=== PATIENT | male | born 1985 | race Caucasian/White ===

== ENCOUNTER 2016-07-22 01:27 | Emergency (ER) | payer SELFPAY ==
[~2016-07-22] VITALS: Ht 170.2 cm; Wt 80.6 kg
[~2016-07-22 01:27] MED LIST: HYDR-3989 PO; LEVO75TA10 PO; METR500T PO; OMEP20CA10 PO; SULF1TAB42 PO
--- OUTSIDE RECORDS SUMMARY | 2016-07-22 01:31 | XMS REPORT | Continuity of Care Document ---
Author Author [facility] Organization [facility] Address Unknown Phone Unavailable Support Name Relationship Address Phone LOR VERMA APRN Caregiver [address] [place] [address] Unavailable LING LOREDO MD Caregiver [address] [place] [address] [place] [phone] Unavailable ARPITA KELLOGG SR Next Of Kin [address] [place] [phone] Insurance Providers Guarantor Mauri Kellogg Address [address] [place] [address] [place] [phone] Email DENIED/NO EMAIL Payer Self Pay Subscriber's Name Mauri Kellogg Relationship 18 Self Chief Complaint and Reason for Visit Chief Complaint General Reason for Visit [id number] Rectal pain Problems Active Problems Medical Problem Onset Date Status Perirectal abscess Unknown Acute Past Problems Medical Problem Onset Date Rectal pain Unknown Skin induration Unknown Medications Current Home Medications Medication Dose Units Route Directions Days Qty Instructions Start Date Hydrocodone/Acetaminophen (Hydrocodon-Acetaminophen 5-325) 5-325 Tablet 1-2 Tab Oral Every 6 Hours as needed for Pain 10 Tablet 02/12/16 Levothyroxine Sodium 75 Mcg Tablet 75 Mcg Oral Before Breakfast 02/12/16 Metronidazole (Flagyl) 500 Mg Tablet 500 Mg Oral Q8h @ 0100/0900/1700 7 Days 21 Tablet Take 1 tablet, by mouth, every 8 hours. 02/12/16 Omeprazole 20 Mg Capsule.dr 20 Mg Oral Before Meals Twice A Day 02/12/16 Sulfamethoxazole/Trimethoprim (Bactrim Ds Tablet) 1 Each Tablet 1 Tab Oral Twice A Day 7 Days 14 Tablet Take 1 tablet, by mouth, 2 times a day. Past Home Medications Medication Directions Ordered Status Albuterol 17 Gm Aerosol, 17 Gm Inhalation Daily 09/21/09 Discontinued Amoxicillin , 10/03/09 Discontinued Hydrocodone Bit/Acetaminophen (Vicodin 5/500 Tablet) 1 Tab Tablet, As Needed 09/21/09 Discontinued None , 09/05/08 Discontinued Ranitidine Hcl (Zantac) 150 Mg Capsule, 150 Mg Oral Daily 09/21/09 Discontinued Social History Social History Problem Response Recorded Date/Time Onset Date Status Hx Substance Use No 02/12/2016 4:00pm Not Applicable Not Applicable Hx Alcohol Use Y OCCASIONAL 02/12/2016 4:00pm Not Applicable Not Applicable Query Response Start Date Stop Date Smoking Status Current every day smoker Hospital Discharge Instructions No hospital discharge instructions. Plan of Care Discharge Date 02/12/16 4:53pm Disposition 01 DISCHARGED HOME, SELF-CARE Condition at Discharge Stable Instructions/Education Provided Cellulitis Prescriptions See Medication Section Referrals TIKA HERNADEZ MD Address: [address] [place] [address] [place] [phone] Note: Follow-up for reevaluation Care Plan and Goals Physician Care Plan Problem: Perirectal pain, induration of skin Goal: Follow up with primary care provider Instructions: Take medications and follow care plan as discussed/written Functional Status No functional status results. Allergies, Adverse Reactions, Alerts Allergen Type Severity Reaction Status Last Updated No Known Drug Allergies Allergy Unknown Active 02/12/16 [place] Allergy Unknown Active 02/12/16 Immunizations Query Response on File Recorded Date/Time Hx Influenza Vaccination No 04/28/12 6:18pm Hx Pneumococcal Vaccination No 04/28/12 6:18pm Hx Influenza Vaccination No 04/28/12 6:18pm Vital Signs Acute Vital Signs Vital Response Date/Time Temperature (Fahrenheit) 97.9 deg F (96.8 - 99.1) 02/12/2016 3:51pm Temperature (Calculated Celsius) 36.29697 degrees C (36.0 - 37.3) 02/12/2016 3:51pm Pulse Rate (adult) 107 bpm (60 - 100) 02/12/2016 4:53pm Respiratory Rate 16 breaths/min (10 - 20) 02/12/2016 4:53pm O2 Sat by Pulse Oximetry 95 % (90 - 100) 02/12/2016 4:53pm Blood Pressure 109/79 mm Hg 02/12/2016 4:53pm Height (Feet) 5 feet 02/12/2016 3:51pm Height (Inches) 8.00 inches 02/12/2016 3:51pm Weight (Kilograms) 83.100 kg 02/12/2016 3:51pm Body Mass Index (BMI) 27.0 02/12/2016 3:51pm Results No known relevant diagnostic tests, laboratory data and/or discharge summary. Procedures Procedure Status Date Provider(s) INCISION OF ANAL ABSCESS Completed 01/18/16 LING LOREDO MD Encounters Encounter Location Arrival/Admit Date Discharge/Depart Date Attending Provider Departed Emergency Room [facility] 02/12/16 3:47pm 02/12/16 4: 53pm LING LOREDO MD Departed Emergency Room [facility] 01/18/16 6:55am 01/18/16 7: 45am LING LOREDO MD Recent Diagnosis
[2016-07-22 01:46] VITALS: BP 138/77; PULSE 82; RESP 16; TEMP 97.9; O2SAT 98; Ht 170.2 cm; Wt 80.6 kg
[2016-07-22] MEDS ORDERED: ESOM20CA PO (01:59)
[2016-07-22] MEDS ORDERED: LORA10TA7 PO (01:59)
[2016-07-22] MEDS ORDERED: FLUT9.9S INH (01:59)
--- NOTE | 2016-07-22 01:59 | ERPDOC ---
Departure Disposition Decision Date: Jul 22, 2016 Disposition Decision Time: 02:14 Disposition: 01 DISCHARGED HOME, SELF-CARE Impression Impression Impression: Primary Impression: Right foot sprain Severity: Moderate Condition: Improved Seen By: Physician only Referrals: LOR VERMA APRN (Family) Patient Instructions: Foot Sprain (ED) Problems/Meds/Labs Reviewed?: Yes Medications reviewed and manag: Yes Additional Instructions: Postop shoe to be used for comfort. Keep foot elevated, ice. Ibuprofen for pain. See your primary care provider if pain continues. Follow up care ordered?: Yes Mental Status: Alert, Oriented HPI - Lower Extremity General Chief Complaint: Lower Extremity Injury Stated Complaint: ROLLED R ANKLE Time Seen by Provider: 01:55 HPI - Lower Extremity Initial Comments 31-year-old gentleman with right ankle/foot pain. Patient was playing basketball his nephew and twisted and fell to the floor, he continued again and finished then noticed that he has swelling on top of his foot. He suddenly had pain and could not bear weight on the foot. No other trauma or issues. Allergies: Coded Allergies: No Known Drug Allergies (Unverified Allergy, Unknown, 07/22/16) strawberry (Unverified Allergy, Unknown, 07/22/16) Past History Past Medical History Pt denies signifigant PMH Respiratory: asthma Surgical History Denies Surgeries Vaccines Hx Influenza Vaccination: No Hx Pneumococcal Vaccination: No Social History Substance Use Type: does not use Alcohol Intake: none Record Review Pertinent history updated: Yes Review of Systems Musculoskeletal General: see HPI All other Systems All Other Systems: Reviewed and Negative Physical Exam General General Nourishment: well nourished, well developed Distress Description Foot pain Vitals and Pain Weight: Kilograms: Height (feet): 5 Height (inches): 8.00 Triage Pain Scale: Normal Exams: Head: Normocephalic w/o trauma Chest/Resp: Clear all miller, with good airflow, and symmetry bilaterally CV: Regular rate and rhythm, without murmur or gallop, Pulses 2+ all extremities, capillary refill, <2 seconds all ext., no pedal edema noted Abdomen: Bowel sounds positive, soft, non-tender, non-distended, no hepatosplenomegaly, masses or bruits noted Neurologic: Patient is alert, and oriented, cranial nerves, motor/sensory/ cerebellar, exams w/o gross deficits, to observation Psychiatric: Patient exhibits, appropriate attention, emotion and affect Musculoskeletal (brief) Comments Swelling on dorsum of right foot, tender to touch over fourth and fifth metatarsal proximal. Differential Diagnoses Considering: Other (fracture, sprain, contusion) Progress Results/Orders Orders Procedure Category Date Status Time Foot Right 3 Views RAD 07/22/16 Logged 01:55 Progress Progress X-ray foot reviewed, no fracture noted. Is most likely a sprain. He'll be placed in a postop shoe for comfort and recommend he follow up with PCP. Ibuprofen for pain, recommended icing and keeping foot elevated. AGNES HESTER MD Jul 22, 2016 01:59
--- NOTE | 2016-07-22 02:00 | NUR ---
IMAGING PT LEAVES WITH IMAGING STAFF AT THIS TIME.
--- NOTE | 2016-07-22 02:14 | NUR ---
RETURN PT RETURNS TO ROOM AT THIS TIME.
--- NOTE | 2016-07-22 02:43 | NUR ---
DEPART PT IS DISCHARGED AT THIS TIME, INSTRUCTIONS ARE REVIEWED AND UNDERSTANDING IS VOICED. PT LEAVES AMBULATORY AND HOPS ON HIS L FOOT.
--- NOTE | 2016-07-22 08:31 | DI ---
Indication: ITS.REASON: trauma PROCEDURE: FOOT RIGHT 3 VIEWS: Encounter: Initial Comparison: None Findings: There is no acute fracture, dislocation or malalignment identified. Impression: No acute osseous abnormality. .
== END 2016-07-22 02:43 | disposition home or self-care (01) ==
LOC: ED 01:27
DX: S93.601A Unspecified sprain of right foot, initial encounter (principal); X50.1XXA Overexertion from prolonged static or awkward postures, initial encounter; Y93.67 Activity, basketball; Y92.838 Other recreation area as the place of occurrence of the external cause; Y99.8 Other external cause status

== ENCOUNTER 2016-08-29 17:33 | Emergency (ER) | payer SELFPAY ==
[~2016-08-29] VITALS: Ht 172.7 cm; Wt 90.0 kg
[~2016-08-29 17:33] MED LIST changes: +ESOM20CA PO; +FLUT9.9S INH; -HYDR-3989 PO; +LORA10TA7 PO; -METR500T PO; -OMEP20CA10 PO; -SULF1TAB42 PO
--- OUTSIDE RECORDS SUMMARY | 2016-08-29 17:37 | XMS REPORT | Continuity of Care Document ---
Author Author [facility] Organization [facility] Address Unknown Phone Unavailable Support Name Relationship Address Phone AGNES HESTER MD Caregiver [address] [place] [address] Unavailable LOR VERMA APRN Caregiver [address] [place] [address] Unavailable ARPITA WALKER SR Next Of Kin [address] [place], [place] [phone] Insurance Providers Guarantor Mauri Walker Address [address] [place] [address] Email DENIED/07/22/16 Payer Self Pay Subscriber's Name Mauri Walker Relationship 18 Self Advance Directives Directive Response Recorded Date/Time Advanced Directives Type None 07/22/16 1:46am Chief Complaint and Reason for Visit Chief Complaint Lower Extremity Injury Reason for Visit [id number] Problems Active Problems Medical Problem Onset Date Status Perirectal abscess Unknown Acute Rectal pain Unknown Acute Skin induration Unknown Acute Past Problems Medical Problem Onset Date Rectal pain Unknown Right foot sprain Unknown Skin induration Unknown Medications Current Home Medications Medication Dose Units Route Directions Days Qty Instructions Start Date Esomeprazole Mag Trihydrate (Nexium) 20 Mg Capsule 1 Tab Oral Twice A Day 07/22/16 Fluticasone Propionate (Flonase Allergy Relief 50 Mcg/Actuation Nasal) 9.9 Ml Hobbs.susp 1 Hobbs Inhalation Daily 07/22/16 Levothyroxine Sodium 75 Mcg Tablet 75 Mcg Oral Before Breakfast 02/12/16 Loratadine 10 Mg Tablet 10 Mg Oral Before Breakfast Take 1 tablet, by mouth, one time a day (before breakfast). 07/22/16 Past Home Medications Medication Directions Ordered Status Albuterol 17 Gm Aerosol, 17 Gm Inhalation Daily 09/21/09 Discontinued Amoxicillin , 10/03/09 Discontinued Hydrocodone Bit/Acetaminophen (Vicodin 5/500 Tablet) 1 Tab Tablet, As Needed 09/21/09 Discontinued None , 09/05/08 Discontinued Ranitidine Hcl (Zantac) 150 Mg Capsule, 150 Mg Oral Daily 09/21/09 Discontinued Social History Social History Problem Response Recorded Date/Time Onset Date Status Hx Substance Use Y MARIJUANA 07/22/2016 1:50am Not Applicable Not Applicable Hx Alcohol Use Y 1-2 X WEEK 07/22/2016 1:50am Not Applicable Not Applicable Query Response Start Date Stop Date Smoking Status Current every day smoker Hospital Discharge Instructions No hospital discharge instructions. Plan of Care Discharge Date 07/22/16 2:43am Disposition 01 DISCHARGED HOME, SELF-CARE Condition at Discharge Improved Instructions/Education Provided Foot Sprain (ED) Prescriptions See Medication Section Referrals LOR VERMA APRN Address: [address] [place] [phone] Additional Instructions/Education Postop shoe to be used for comfort. Keep foot elevated, ice. Ibuprofen for pain. See your primary care provider if pain continues. Functional Status No functional status results. Allergies, Adverse Reactions, Alerts Allergen Type Severity Reaction Status Last Updated No Known Drug Allergies Allergy Unknown Active 07/22/16 [place] Allergy Unknown Active 07/22/16 Immunizations Query Response on File Recorded Date/Time Hx Influenza Vaccination No 04/28/12 6:18pm Hx Pneumococcal Vaccination No 04/28/12 6:18pm Hx Influenza Vaccination No 04/28/12 6:18pm Tdap Vaccine Hx UNK 07/22/16 2:00am Vital Signs Acute Vital Signs Vital Response Date/Time Temperature (Fahrenheit) 97.9 deg F (96.8 - 99.1) 07/22/2016 1:46am Temperature (Calculated Celsius) 36.80352 degrees C (36.0 - 37.3) 07/22/2016 1:46am Pulse Rate (adult) 82 bpm (60 - 100) 07/22/2016 1:46am Respiratory Rate 16 breaths/min (10 - 20) 07/22/2016 1:46am O2 Sat by Pulse Oximetry 98 % (90 - 100) 07/22/2016 1:46am Blood Pressure 138/77 mm Hg 07/22/2016 1:46am Height (Feet) 5 feet 07/22/2016 1:46am Height (Inches) 7.00 inches 07/22/2016 1:46am Weight (Kilograms) 80.600 kg 07/22/2016 1:46am Body Mass Index (BMI) 27.0 07/22/2016 1:46am Results No known relevant diagnostic tests, laboratory data and/or discharge summary. Procedures No known history of procedures. Encounters Encounter Location Arrival/Admit Date Discharge/Depart Date Attending Provider Departed Emergency Room [facility] 07/22/16 1:27am 07/22/16 2: 43am AGNES HESTER MD Recent Diagnosis
--- OUTSIDE RECORDS SUMMARY | 2016-08-29 17:38 | XMS REPORT | Continuity of Care Document ---
Author Author [facility] Organization [facility] Address Unknown Phone Unavailable Allergies Medications Problems Procedures Results Test Result Range TROPONIN I BEDSIDE - 07/19/16 15:32 METHOD Bedside TROPONIN I < 0.04 ng/mL < 0.11 METABOLIC PANEL, COMPREHN - 07/19/16 15:50 POTASSIUM 3.5 mmol/L 3.5-5.3 EST GFR (MDRD) > 60 mL/min > 59 ANION GAP 12 mmol/L 5-15 GLUCOSE 92 mg/dL 70-99 CALCIUM 9.5 mg/dL 8.5-10.1 BLOOD UREA NITROGEN 7 mg/dL 7-20 CREATININE 1.1 mg/dL 0.7-1.3 SODIUM 142 mmol/L 135-148 CHLORIDE 104 mmol/L 98-110 AST/SGOT 23 Units/L 10-37 ALT/SGPT 18 Units/L < 66 CARBON DIOXIDE 26 mmol/L 21-32 TOTAL PROTEIN 8.2 gm/dL 6.4-8.2 ALBUMIN 4.6 gm/dL 3.4-5.0 BILI TOTAL 0.6 mg/dL 0.0-1.0 ALKALINE PHOSPHATASE TOTAL 61 IU/L 45- 117 LIPASE - 07/19/16 15:50 LIPASE 455 Units/L 73-393 UR DRUGS OF ABUSE SCREEN - 07/19/16 16:50 UR AMPHETAMINES SCREEN NEG (<1000 ng/mL) NEGATIVE UR BARBITURATE SCREEN NEG (< 200 ng/mL) NEGATIVE DRUGS OF ABUSE SCREEN COMMENT UR OPIATES SCREEN NEG (< 300 ng/mL) NEGATIVE UR PHENCYCLIDINE (PCP) SCREEN NEG (< 25 ng/mL) NEGATIVE UR CANNABINOIDS (THC) SCREEN POS (> 50 ng/mL) NEGATIVE UR COCAINE METABOLITE SCREEN NEG (< 300 ng/mL) NEGATIVE UR METHADONE SCREEN NEG (< 300 ng/mL) NEGATIVE UR BENZODIAZEPINE SCREEN NEG (< 200 ng/mL) NEGATIVE Encounters ACCT No. Visit Date/Time Discharge Status Pt. Type Provider Facility Loc./Unit Complaint [id number] 07/19/2016 15:21:00 2016 18:10:00 DIS Emergency Alex Mccarthy DO [facility]
[2016-08-29 17:50] VITALS: Ht 172.7 cm; Wt 90.0 kg
[2016-08-29 18:34] VITALS: BP 135/81; PULSE 77; RESP 14; TEMP 98; O2SAT 97
--- NOTE | 2016-08-29 18:34 | NUR ---
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 PT DOES NOT APPEAR TO BE IN ANY ACUTE DISTRESS AT THIS TIME, DENIES ANY NEW COMPLAINTS AND STATES HE WILL BE BACK AFTER 2100 WHEN HE HAS A SITTER FOR HIS CHILD. PT IS ENCOURAGED TO SEEK MEDICAL ATTENTION AND ADVISED CONDITION COULD WORSEN. PT IS INSISTANT HE IS LEAVING, WILL NOT ALLOW A 2ND SET OF VITAL SIGNS. PT IS AMBULATORY OUT OF THE ED WITHOUT DIFFICULITES AFTER SIGNING LWBS FORM.
[2016-08-29] MEDS ORDERED: AMOX-351 PO (18:36)
--- OUTSIDE RECORDS SUMMARY | 2016-08-29 19:08 | XMS REPORT | Continuity of Care Document ---
Author Author [facility] Organization [facility] Address Unknown Phone Unavailable Allergies Medications Problems [...] Status Pt. Type Provider Facility Loc./Unit Complaint [id number] 07/19/2016 15:21:00 2016 18:10:00 DIS Emergency Alex Mccarthy DO [facility]
== END 2016-08-29 18:34 | disposition left against medical advice (07) ==
LOC: ED 17:33
DX: Z53.21 Procedure and treatment not carried out due to patient leaving prior to being seen by health care provider (principal)

== ENCOUNTER → 2016-09-07 | Outpatient (CLI) | payer SELFPAY ==
[~2016-09-07] MED LIST changes: +AMOX-351 PO; -ESOM20CA PO; -FLUT9.9S INH; -LORA10TA7 PO
--- NOTE | 2016-09-07 15:59 | DI ---
Indication: ITS.REASON: J32.9 CHRONIC SINUSITIS PROCEDURE: SINUS COMPLETE: Encounter: Initial Comparison: None Findings: The paranasal sinuses are radiographically clear. No acute air-fluid levels identified. No obvious mucosal thickening. Mastoid air cells appear normally aerated. Orbits are unremarkable. Impression: No radiographic evidence of acute sinusitis. Sinus CT could be performed for more sensitive evaluation as clinically indicated. .
== END ==
LOC: IMA 15:26
PROVIDERS: ATTEND Nurse Practitioner Family
DX: J32.9 Chronic sinusitis, unspecified (principal)

== ENCOUNTER → 2016-09-07 | Outpatient (CLI) | payer SELFPAY ==
[~2016-09-07] MED LIST changes: +IOHEXOL 300 MG/ML 100ml INJECTION ONE; +NORMAL SALINE 100 ML ONE; +SALINE FLUSH 10ml SYRINGE ONE
--- NOTE | 2016-09-07 15:27 | DI ---
Indication: ITS.REASON: R10.13 ABD PAIN-EPIGASTRIC PROCEDURE: CT ABD/PELVIS W/CONTRAST ONLY: Encounter: Initial Comparison: None Technique: Axial CT images were performed through the abdomen and pelvis after the administration of intravenous contrast. Coronal and sagittal two-dimensional reformats. Automated Exposure Control and Iterative Reconstruction dose reducing techniques were utilized. Contrast: Omnipaque 300 99 mL Findings: Small presumably benign nodule in the right lower lobe. Lung bases are otherwise clear. The liver appears normal. The gallbladder, spleen, pancreas and adrenal glands are within normal limits. The kidneys are normal. No abdominal or pelvic lymphadenopathy. The bladder is normal. Prostate and rectum are within normal limits. No free fluid. No evidence of a bowel obstruction. The appendix is normal. 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 These may fuse distally. Bone windows are unremarkable. Impression: 1. No acute disease process seen. 2. Duplicated right renal collecting system. .
== END ==
LOC: IMA 13:08
PROVIDERS: ATTEND Surgery
DX: R10.13 Epigastric pain (principal); Q62.5 Duplication of ureter